=== PATIENT | male | born 1995 | race Caucasian/White ===

== ENCOUNTER 2024-02-27 04:47 | Emergency (ER) | payer OTHER, SELFPAY ==
[2024-02-27 04:51] VITALS: BP 136/98
--- NOTE | 2024-02-27 05:53 | ED.GENMED ---
History of Present Illness
General
Chief Complaint: Cold/Flu/URI Symptoms
Source: patient
Exam Limitations: none
Time Seen by Provider: 02/27/24 05:26
Nursing documentation reviewed up to this point in time: agreed with
History of Present Illness
History of Present Illness:
This is a 28-year-old male transitioning into female who presents with cough that has been present for the last few weeks. Patient states that he has had a cough for the last few weeks and feels that it is coming from yeast that has been given off
by her mom who has had a yeast infection. She states that she is unhappy living in her mom's home ' has asked her mom to move out for the last 8 years ' . Patient denies fever or chills. Takes medications to suppress testosterone. Denies fever,
chills, nausea or vomiting.
Past History
Past History
ED Past Medical History: None; Negative Asthma, HTN, Hypercholesterolemia or NIDDM
ED Past Surgical History: None
Social History
Tobacco: Former smoker
Alcohol: Occasional
Personal: Single
Living: with family
Review of Systems
Review of Systems
Allergies reviewed?: Yes
All Other Systems: ROS reviewed and negative except as documented in HPI and ROS
Constitutional: Reports no symptoms
EENT: Reports no symptoms
Respiratory: Reports cough; Denies hemoptysis or trouble breathing
Cardiac: Denies no symptoms, chest pain, diaphoresis or palpitations
ABD/GI: Reports no symptoms
: Reports no symptoms
Musculoskeletal: Reports no symptoms
Skin: Reports no symptoms
Neurological: Reports no symptoms
Endocrine: Reports no symptoms
Hematologic/Lymphatic: Reports no symptoms
Psychiatric: Reports no symptoms
Phy Exam
General Physical Exam
General Presentation: well appearing and no apparent distress
General Skin: warm and dry
General Habitus: normal
General Mental: alert
General Hydration: appears well hydrated
ENT Exam
ENT Exam: EOMI, pharynx normal, neck supple and normocephalic
Eye Exam
Eye Exam: PERRL, cornea clear and conjunctiva normal
Cardiovascular Exam
Cardiovascular Exam: regular rate/rhythm, no edema, no murmur and normal peripheral pulses
Pulmonary Exam
Pulmonary Exam: lungs clear, no respiratory distress, no rales, no crackles, no rhonchi, no stridor, no wheezing and no cough
Gastrointestinal Exam
Gastrointestinal Exam: normal bowel sounds, non tender, soft, no organomegaly, no pulsatile mass and non distended
Neurological Exam
Neurological Exam: alert, oriented x3, no motor deficits and speech normal
Musculoskeletal Exam
Musculoskeletal Exam: full ROM and no edema
Skin Exam
Skin Exam: normal color, warm/dry, no rash and no petechia
Psychiatric Exam
Psychiatric Exam: normal mood/affect
Course
Orders/Labs/Results
Orders:
Orders
02/27/24 05:01
CR Chest - 2 Views Urgent
Comment:
Reason For Exam: cough
02/27/24 05:50
Case Management Consult ONCE
Case Management Consult: Other
Comment: Patient is a 28 male transitioning to female would like resources for shelters. Feels safe at home
but wants to move out. Nonsuicidal.
02/27/24 05:52
Dexamethasone Pf [Decadron] 10 mg PO NOW STA
Vital Signs
Initial and Last Documented VS:
Initial Vital Signs
Temp Pulse Resp BP Pulse Ox
97.7 F 118 22 136/98 98
02/27/24 04:51 02/27/24 04:51 02/27/24 04:51 02/27/24 04:51 02/27/24 04:51
Last Documented Vital Signs
Temp Pulse Resp BP Pulse Ox
97.7 F 118 22 136/98 98
02/27/24 04:51 02/27/24 04:51 02/27/24 04:51 02/27/24 04:51 02/27/24 04:51
*Critical Care Note
Total Time (30-74mins, 75-104mins- exclusive of procedures): Not Applicable
ED Attending Note
-
Portions of this chart may have been created with voice recognition software.� Occasional wrong word or��sound alike� substitutions may have occurred due to the inherent limitations of voice recognition software.
Discharge Plan
Departure
Patient Disposition: Home (Routine Discharge)
Date of Disposition: 02/27/24
Time of Disposition: 05:55
Patient with high blood pressure during this ER visit?: Yes
Condition: Good
Discharge Problem:
Bronchitis
Instructions: Acute Bronchitis, Adult (DC), BLOOD PRESSURE
Referrals:
[facility] [Active] -
PRIVATE,PHYSICIAN [Family Provider] -
Activity Restrictions/Additional Instructions:
It was a pleasure meeting you and taking part in your care. We hope for your continued healing and wellness.
Please read discharge instructions in their entirety. However, they are for general education and may not describe your exact diagnosis at discharge. Information on your ER visit and medical conditions were discussed with you along with appropriate
follow up information...
If indicated, please take your medications as instructed and indicated on discharge paperwork.
Please schedule a follow up appointment as directed. Call to schedule an appointment
Please return to the emergency department with ANY change in, persisting, or worsening of symptoms. If any of your symptoms do not improve, or persist, or become more severe within 6-12 hours, please return to the emergency department for further
care.
Please return to the emergency department if you develop a headache, neck pain/stiffness, fever greater than 100.4F, chest pain, shortness of breath, persistent nausea, vomiting, slurred speech, difficulty walking, numbness/tingling, weakness, signs
of infection or any other symptoms that are worrisome to you.
If you have any questions or concerns please do not hesitate to call the Hospital at
Interventions
Interventions:
*Risk Screen - Suicide Last Done: 02/27/24 04:51
*Neglect/Abuse Screening Last Done: 02/27/24 04:51
Discharge Date and Time
Print Language: SLOVAK
[2024-02-27 06:00] VITALS: BP 136/84
[2024-02-27] MEDS: DECADRON 10 MG PO (06:00)
--- NOTE | 2024-02-28 10:31 | CM ---
CM consult for homeless shelters that are LGBTQIA/trans-friendly. Attempted to call patient. VM picked up. Left brief message for patient with CM's work number.
== END 2024-02-27 06:19 | disposition home or self-care (01) ==
LOC: EMR 04:47
PROVIDERS: EMERGENCY PHYSICIAN Student in an Organized Health Care Education/Training Program
DX: J20.9 Acute bronchitis, unspecified (principal); R03.0 Elevated blood-pressure reading, without diagnosis of hypertension; F41.9 Anxiety disorder, unspecified; F90.9 Attention-deficit hyperactivity disorder, unspecified type; Z86.16 Personal history of COVID-19
CPT/HCPCS: 99283; 71046